=== PATIENT | male | born 1950 | race Caucasian/White ===

== ENCOUNTER 2017-10-20 17:56 | Emergency (ER) | payer MEDICARE, BC ==
[2017-10-20 18:02] VITALS: TEMP 100.8
[2017-10-20 18:51] LABS: BASO # 0.1 (0.0-0.2); BASO % 0.5 % (0.0-2.0); EOS # 0.1 (0.0-0.7); EOS % 0.3 % (0-4.0); GRAN # 11.5 (1.4-6.5); GRAN % 78.3 % (42.2-75.2); HEMATOCRIT 39.4 % (42.0-52.0); HEMOGLOBIN 13.3 g/dl (13.5-18.0); LYMPH # 1.6 (1.2-3.4); LYMPH % 10.9 % (20.0-51.0); MEAN CELL VOLUME 87 fl (80.0-100.0); MEAN CORPUSCULAR HEMOGLOBIN 30 pg (27.0-31.0); MEAN CORPUSCULAR HGB CONC 34 g/dl (33.0-37.0); MEAN PLATELET VOLUME 9.2 fl (7.4-10.4); MONO # 1.3 (0.1-0.6); MONO % 8.9 % (1.7-9.3); PLATELET COUNT 372 K/mm3 (130-400); RED BLOOD COUNT 4.51 M/mm3 (4.20-5.60); REDCELL DISTRIBUTION WIDTH-CV 13.6 % (11.5-14.5)
[2017-10-20 19:02] LABS: ALBUMIN 4.4 gm/dL (3.5-5.0); BILIRUBIN,TOTAL 1.3 mg/dL (0.0-1.0); CALCIUM 9.4 mg/dL (8.4-10.2); CREATININE, serum 1.13 mg/dL (0.66-1.25); TOTAL PROTEIN 7.7 gm/dL (6.4-8.2)
[2017-10-20 19:07] LABS: INFLUENZA A NEGATIVE; INFLUENZA B NEGATIVE
[2017-10-20] MEDS ORDERED: LEVAQUIN 5500 MG/TA1 PO (19:18)
[2017-10-20] MEDS ORDERED: PREDNISONE20 MG PO (19:18)
[2017-10-20 20:06] VITALS: BP 123/77; PULSE 90
== END 2017-10-20 20:14 | disposition home or self-care (01) ==
LOC: COL.ER 17:56
PROVIDERS: Family Medicine
DX: J18.1 Lobar pneumonia, unspecified organism (principal); J45.909 Unspecified asthma, uncomplicated
CPT/HCPCS: J0696; J7030